=== PATIENT | male | born 1995 | race Caucasian/White ===

== ENCOUNTER 2016-12-18 21:01 | Emergency (ER) | payer BC ==
--- NOTE | 2016-12-18 21:05 | EDPHY ---
H & P Time Seen by Provider: 12/18/16 21:05 HPI/ROS: CHIEF COMPLAINT: Right pinky digitinjury HISTORY OF PRESENT ILLNESS: 21-year-old male arrives via private vehicle complaining of right pinky injury after he stubbed it playing basketball. Possible dislocation. No paresthesia. PHYSICAL EXAM (Prior to examination, patient consented to physical exam, hands were washed and my usual and customary physical exam procedures followed) 1) GENERAL: Well-developed, well-nourished, alert and oriented. Appears to be in no acute distress. 2) HEAD: Normocephalic 3) HEENT: sclera anicteric 4) LUNGS: Breathing comfortably. 5) SKIN: abrasion to the 5th MCP dorsal aspect. 6) MUSCULOSKELETAL: lateral deformity of the right pinky digit at the PIP joint 7) NEUROLOGIC: Full sensation two-point discrimination intact Constitutional: Initial Vital Signs Temperature (C) 36.7 C 12/18/16 21:18 Heart Rate 70 12/18/16 21:18 Respiratory Rate 16 12/18/16 21:18 Blood Pressure 132/80 H 12/18/16 21:18 O2 Sat (%) 96 12/18/16 21:18 O2 Delivery Mode Room Air Allergies/Adverse Reactions: No Known Allergies Allergy (Unverified 12/18/16 21:20) MDM/Departure - [facility] Imaging Results: Imaging Impressions Hand X-Ray 12/18/16 21:12 Impression: Dislocated right fifth proximal interphalangeal joint. Hand X-Ray 12/18/16 21:42 Impression: 1. Good anatomic reduction. 2. Tiny cortical chip adjacent the PIP joint. images reviewed by myself Procedures: Procedure: Dislocation reduction. . The dislocation of the right 5th digit at the PIP was reduced using traction counter traction technique without complications. Post reduction the patient's neurovascular exam is normal. Post reduction x-ray demonstrates reduction of the joint to the anatomic position. The procedure was performed by myself. Procedure: Splint A fernando-tape and aluminum finger splint was applied by ER pathological technician. After application of the splint I returned and re-examined the patient. The splint was adequately immobilizing the joint and distal to the splint the patient's circulation and sensation were intact. Patient shows no signs of compartment syndrome. Was given orthopedic precautions. - Depart Disposition: Home, Routine, Self-Care Clinical Impression: Finger dislocation Qualifiers: Encounter type: initial encounter Qualified Code(s): S63.259A - Unspecified dislocation of unspecified finger, initial encounter Condition: Good Instructions: Finger Dislocation (ED) Additional Instructions: Return to the ER immediately if you experience discoloration, have worsening pain, numbness, tingling, or any other symptoms that concern you. If you received x-rays in the emergency department today, be advised, that ligamentous , tendon, muscular, and other non-bony injury cannot be fully ruled out. Try to keep your affected extremity elevated above the level of your chest, and keep cold packs on the affected area, for the next 48 hours. Referrals: Jonny Henderson MD [Medical Doctor] - 1-2 days without fail
[2016-12-18 21:20] VITALS: TEMP 98.1
[2016-12-18 22:01] VITALS: BP 117/60; PULSE 75; RESP 18; O2SAT 93
== END 2016-12-18 22:00 | disposition home or self-care (01) ==
PROC: 0RSWXZZ Reposition Right Finger Phalangeal Joint, External Approach (ICD-10-PCS; principal; 2016-12-18)
DX: S63.286A Dislocation of proximal interphalangeal joint of right little finger, initial encounter (principal); W22.8XXA Striking against or struck by other objects, initial encounter; Y93.67 Activity, basketball